=== PATIENT | female | born 1940 | race Caucasian/White ===

== ENCOUNTER → 2019-05-08 | Outpatient (CLI) | payer MEDICARE, OTHER ==
--- NOTE | 2019-05-08 17:25 | US ---
EXAM DESCRIPTION: Abdomen,Complete: Ultrasound. CLINICAL HISTORY: LOWER ABDOMINAL PAIN COMPARISON: None Available. TECHNIQUE: Transabdominal scannin-dimensional and Doppler modes. FINDINGS: Gallbladder: Normal size with no stones or sludge. Normal wall thickness 1.8 mm. No fluid around the wall. Nontender with transducer pressure. Common bile duct: 3.1 mm normal caliber. Liver: Increased echogenicity diffusely. Difficult to see the posterior liver and capsule. Long axis right lobe 15.1 cm. Normal direction of flow and caliber of the portal vein. No intrahepatic biliary dilatation. Smooth capsule where seen with no ascites. Pancreas: Included segments with normal echogenicity. Duct not seen. Abdominal aorta: Normal caliber from the proximal segment to the distal bifurcation. IVC: visualized; normal caliber. Spleen normal echogenicity; long axis measurement is 10.9 cm. Right kidney: Long axis is 11.8 cm. Mid renal cortical thickness 8.7 mm. Normal cortical echogenicity. No hydronephrosis, no echogenic stones, no perirenal fluid. Capsule is minimally lobulated. Left kidney: Long axis is 11.0 cm. Mid renal cortical thickness is 12 mm. Normal cortical echogenicity. No hydronephrosis, no echogenic stones, no perirenal fluid. Smooth contour of the capsule. IMPRESSION: 1. Steatosis of the liver diffusely with normal ducts and blood flow. Density of the liver decreased visualization of the posterior liver. Smooth capsule where seen with no ascites. 2. Gallbladder, pancreas, left kidney and spleen unremarkable. Normal caliber common bile duct. Thinning of the right renal cortex, lobulation of the capsule, but normal echogenicity. Most likely related to aging. Normal caliber of the abdominal aorta and IVC. Electronically signed by: Geronimo Love MD 05/08/2019 5:22 PM CDT
== END ==
LOC: RAD 14:32
PROVIDERS: ATTEND Nurse Practitioner Family
DX: K76.0 Fatty (change of) liver, not elsewhere classified (principal)

== ENCOUNTER → 2019-11-09 | Outpatient (CLI) | payer MEDICARE, OTHER ==
--- NOTE | 2019-11-10 08:39 | RAD ---
EXAM DESCRIPTION: Thumb,Right CLINICAL HISTORY: 79 years Female, PAIN IN UNSP LIMB COMPARISON: None. TECHNIQUE: 3 views of the right thumb. FINDINGS: Diffuse osteopenia of the visualized bones noted. No acute fracture. 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 Advanced osteoarthritic changes are also noted involving the first CMC joint. Mild soft tissue swelling is noted along the lateral aspect of the thumb interphalangeal joint. IMPRESSION: 1. No acute fracture. 2. 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 Electronically signed by: Pankaj Rodriguez MD 11/10/2019 8:38 AM [facility]
== END ==
LOC: RAD 17:39
PROVIDERS: ATTEND Nurse Practitioner Family
DX: M19.041 Primary osteoarthritis, right hand (principal); S63.121A Subluxation of interphalangeal joint of right thumb, initial encounter